=== PATIENT | female | born 1940 | race Caucasian/White ===

== ENCOUNTER 2019-11-30 06:04 | Day surgery (SDC) | payer MEDICARE, OTHER ==
[2019-11-29 08:57] LABS: BASOPHILS # (AUTO) 0.1 X10'3 (0-0.2); BASOPHILS % (AUTO) 1.3 % (0-1); EOSINOPHILS # (AUTO) 0.1 X10'3 (0-0.9); EOSINOPHILS % (AUTO) 2.1 % (0-6); HEMATOCRIT 40.6 % (35.0-45.0); HEMOGLOBIN 13.6 g/dl (12.0-16.0); LYMPHOCYTES # (AUTO) 1.1 X10'3 (1.1-4.8); MEAN CORPUSCULAR HEMOGLOBIN 30.5 PG (27.0-31.0); MEAN CORPUSCULAR HGB CONC 33.6 g/dL (33.0-36.5); MEAN CORPUSCULAR VOLUME 90.9 FL (78-98); MEAN PLATELET VOLUME 7.3 FL (7.4-10.4); MONOCYTES # (AUTO) 0.4 X10'3 (0-0.9); MONOCYTES % (AUTO) 9.9 % (2-12); NEUTROPHILS # (AUTO) 2.4 X10'3 (1.8-7.7); NEUTROPHILS % (AUTO) 59.7 % (42-75); PLATELET COUNT 250 X10'3 (140-440); RED BLOOD COUNT 4.47 X10'6 (4.20-5.60); RED CELL DISTRIBUTION WIDTH 13.7 % (11.5-14.5)
[2019-11-29 09:07] LABS: ALBUMIN 3.6 G/DL (3.4-5.0); ANION GAP 6 (8-16); BLOOD UREA NITROGEN 17 MG/DL (7-18); BUN/CREATININE RATIO 20.5 (6.6-38.0); CHLORIDE 105 MMOL/L (99-107); CREATININE 0.83 MG/DL (0.40-0.90); GLUCOSE 96 MG/DL (70-104); PARTIAL THROMBOPLASTIN TIME 27 SECONDS (22-32); POTASSIUM 3.9 MMOL/L (3.5-5.1); SODIUM 140 MMOL/L (135-145); TOTAL CARBON DIOXIDE 29.3 MMOL/L (24-32); eGFR 66 ML/MIN
[2019-11-30] VITALS (11 sets, daily range): BP systolic 116–154; BP diastolic 49–68
[~2019-11-30] VITALS: Ht 167.6 cm; Wt 74.1 kg
[2019-11-30] MEDS ORDERED: ceFAZolin 2gm in dextrose, iso 50 ML IV ONE (06:20)
[2019-11-30] MEDS ORDERED: MULT-1085 PO (06:26)
[2019-11-30] MEDS ORDERED: OMEP40CA13 PO (06:26)
[2019-11-30] MEDS ORDERED: FERR325T28 PO (06:26)
[2019-11-30] MEDS ORDERED: LEVO25TA2 PO (06:26)
[2019-11-30] MEDS ORDERED: LIDOcaine 1% W/epiNEPHrine 1:100,000 20ml vial ONE ×2 (07:35→08:27)
[2019-11-30] MEDS ORDERED: midazolam 2 mg/2 ml injection ONE ×3 (07:35→09:16)
[2019-11-30] MEDS ORDERED: fentaNYL/PF 50MCG/1 ML 2ML syringe ONE ×2 (07:35→09:00)
[2019-11-30] MEDS ORDERED: ceFAZolin 1000mg inj ONE (07:35)
[2019-11-30] MEDS ORDERED: metoprolol tartrate 25mg tablet PO SCH (09:59)
[2019-11-30] MEDS ORDERED: HYDROcodone/acetaminophen 10/325mg tab PO PRN (10:00)
[2019-11-30] MEDS ORDERED: HYDROcodone/acetaminophen 5mg/325mg tablet PO PRN (10:00)
[2019-11-30] MEDS ORDERED: normal saline 1000ml 1,000 ML IV ONE (10:15)
--- NOTE | 2019-11-30 10:19 | NUR ---
PT REQUESTED HER BREAKFAST. PT SITTING UP IN BED, CALL LIGHT IN REACH. SITE IS STABLE. VS STABLE CHARTED.
--- NOTE | 2019-11-30 10:19 | NUR ---
Problems reprioritized. Patient report given, questions answered & plan of care reviewed with LALITO LARA.
[2019-11-30] MEDS ORDERED: vancomycin/NS 1 GM ADD-VANTAGE 250 ML IV ONE (11:30)
== END 2019-11-30 15:10 | disposition home or self-care (01) ==
LOC: SSTAY O 06:04
PROVIDERS: ATTEND Internal Medicine Cardiovascular Disease
DX: I49.5 Sick sinus syndrome (principal); I48.0 Paroxysmal atrial fibrillation
CPT/HCPCS: 33208; 36415; 71046; 80048; 85025; 85610; 85730; 93005; 99152; 99153; C1785; C1894; C1898; J0690; J2250; J3010; J3370; J7030; A4565; A6449